=== PATIENT | female | born 1955 | race Caucasian/White ===

== ENCOUNTER 2017-02-08 20:40 | Emergency (ER) | payer OTHER ==
[2017-02-08] MEDS ORDERED: LIDOCAINE 1%/EPI 1:100,000 20 ML VIAL. IJ ONE (22:15)
[2017-02-08] MEDS ORDERED: LIDOCAINE 2%/EPI 1:100,000 20 ML VIAL. IJ ONE (22:45)
--- NOTE | 2017-02-08 23:16 | PHYS DOC ---
Past History Past Medical History: Depression, Hypothyroid Past Surgical History: Appendectomy, Tonsillectomy, Other Alcohol Use: None Drug Use: None Adult General Chief Complaint Chief Complaint: ANIMAL BITE HPI HPI Patient is a 61 year old female who presents with complaint of dog bite wounds to the forehead and scalp. Patient states that this took place immediately prior to arrival. Patient states that she recently moved in a new home. Patient states that her neighbor had a dog who came up to her while she was working on the other side of the fence and the dog snapped at her, biting her left scalp and forehead. Patient states she suffered lacerations as a result of this. Patient states that she had significant bleeding at the scene. Currently patient 's bleeding is controlled. Patient denies any other complaints. Patient states she is up-to-date on her tetanus immunization. The incident has been reported to [employer]. The patient was questioned by authorities while in the emergency department. The patient is here to have her lacerations evaluated and repaired. Review of Systems Review of Systems Constitutional: Denies fever or chills [] Eyes: Denies change in visual acuity, redness, or eye pain [] HENT: Denies nasal congestion or sore throat [] Musculoskeletal: Denies back pain or joint pain [] Integument: Facial and scalp lacerations [] Neurologic: Denies headache, focal weakness or sensory changes [] Current Medications Current Medications Current Medications Medications (Trade) Dose Ordered Sig/[facility] Start Time Stop Time Status Last Admin Dose Admin Lidocaine/ Epinephrine (Xylocaine 1%-Epi 1:100,000) 20 ml 1X ONCE 02/08/17 22:15 02/08/17 22:16 DC Lidocaine/ Epinephrine (Xylocaine 2%-Epi 1:100,000) 20 ml 1X ONCE 02/08/17 22:45 02/08/17 22:46 DC Allergies Allergies Allergies Coded Allergies Type Severity Reaction Last Updated Verified Iodinated Contrast- Oral and IV Dye Allergy Mild NAUSEA 02/08/17 Yes Physical Exam Physical Exam Constitutional: Alert, afebrile, no acute distress.. [] HENT: Normocephalic, 1.5 cm laceration along left forehead above hairline, 1.5 cm laceration to left parietal scalp bilateral external ears normal, oropharynx moist, no oral exudates, nose normal. [] Eyes: PERRLA, EOMI, conjunctiva normal, no discharge. [] Neck: Normal range of motion, no tenderness, supple, no stridor. [] Lungs & Thorax: Bilateral breath sounds clear to auscultation [] Skin: Warm, dry, no erythema, no rash. [] Extremities: No tenderness, no cyanosis, no clubbing, ROM intact, no edema. [] Neurologic: Alert and oriented X 3, normal motor function, normal sensory function, no focal deficits noted. [] Current Patient Data Vital Signs Vital Signs Date Time Temp Pulse Resp B/P (MAP) Pulse Ox O2 Delivery O2 Flow Rate FiO2 02/08/17 20:45 98.4 62 18 99 Room Air EKG EKG Not performed [] Radiology/Procedures Radiology/Procedures Not performed [] Course & Med Decision Making Course & Med Decision Making Pertinent Labs and Imaging studies reviewed. (See chart for details) The patient's lacerations were repaired as outlined in the procedure note. A full report to the authorities was completed while patient was in the emergency department. Advised patient follow-up in 5-7 days with primary doctor for removal of carlos eduardo. Advised return emergency department for any worsening symptoms. Patient was understanding and in agreement with treatment plan. Dragon Disclaimer Dragon Disclaimer This chart was dictated in whole or in part using Voice Recognition software in a busy, high-work load, and often noisy Emergency Department environment. It may contain unintended and wholly unrecognized errors or omissions. Laceration Repair Lac Repair Indication: Laceration to left forehead and left parietal scalp Procedure: The patient was placed in the appropriate position and anesthesia of both lacerations was achieved with injection of lidocaine 2% with epinephrine. The area was then cleansed with saline soaked gauze. The laceration to the left forehead was closed using 2 surgical carlos eduardo. The left parietal scalp laceration was also closed with 2 surgical carlos eduardo. Total repaired wound length: 3 cm. Other Items: Stable count: 4 The patient tolerated the procedure without difficulty. Complications: None. Departure Departure: Impression: Primary Impression: Dog bite of face Additional Impression: Scalp laceration Disposition: HOME, SELF-CARE Condition: IMPROVED Referrals: DENISHA CASTILLO (PCP) Patient Instructions: Animal Bite, Laceration Care, Adult, Staple Care and Removal Additional Instructions: Follow-up in 5-7 days with your primary doctor for removal of carlos eduardo. Return to the emergency department for any worsening symptoms. Problem Qualifiers Primary Impression: Dog bite of face Encounter type: initial encounter Qualified Codes: S01.85XA - Open bite of other part of head, initial encounter; W54.0XXA - Bitten by dog, initial encounter Additional Impression: Scalp laceration Encounter type: initial encounter Qualified Codes: S01.01XA - Laceration without foreign body of scalp, initial encounter CHANA CORDERO MD Feb 08, 2017 23:16
[2017-02-08 23:18] VITALS: BP 120/65
== END 2017-02-08 23:21 | disposition home or self-care (01) ==
LOC: ER 20:40
DX: S01.85XA Open bite of other part of head, initial encounter (principal); S01.01XA Laceration without foreign body of scalp, initial encounter; E03.9 Hypothyroidism, unspecified; W54.0XXA Bitten by dog, initial encounter; Y93.89 Activity, other specified; Y99.8 Other external cause status; Y92.89 Other specified places as the place of occurrence of the external cause
CPT/HCPCS: 12001; 12011; 99284-25

== ENCOUNTER 2017-02-18 18:21 | Emergency (ER) | payer OTHER ==
[~2017-02-18] VITALS: Ht 167.6 cm; Wt 79.4 kg
[2017-02-18 18:27] VITALS: BP 149/83
[2017-02-18] MEDS ORDERED: NAPR500T PO (18:33)
--- NOTE | 2017-02-18 18:33 | PHYS DOC ---
Past History Past Medical History: Depression, Hypothyroid Past Surgical History: Appendectomy, Tonsillectomy, Other Alcohol Use: None Drug Use: None Adult General Chief Complaint Chief Complaint: SUTURE/STAPLE REMOVAL HPI HPI Patient is a 61 year old female who presents with staple removal. She was seen here February 08 for dog bite to the scalp forehead area. Wounds were cleansed and repaired. She is here to have carlos eduardo removed. No drainage no redness no pain to the wounds. Review of Systems Review of Systems Constitutional: Denies fever or chills Integument: Denies rash or skin lesions. [place] intact. Allergies Allergies Allergies Coded Allergies Type Severity Reaction Last Updated Verified Iodinated Contrast- Oral and IV Dye Allergy Mild NAUSEA 02/08/17 Yes Physical Exam Physical Exam Constitutional: Well developed, well nourished, no acute distress, non-toxic appearance. HENT: Normocephalic, atraumatic, carlos eduardo noted to the left scalp margin in the left parietal scalp area incisions well-healed. No redness or drainage. Skin: Warm, dry, no erythema, no rash. Wound is well-healed Current Patient Data Vital Signs Reviewed EKG EKG [] Dragon Disclaimer Dragon Disclaimer This chart was dictated in whole or in part using Voice Recognition software in a busy, high-work load, and often noisy Emergency Department environment. It may contain unintended and wholly unrecognized errors or omissions. Departure Departure: Impression: Primary Impression: Removal of carlos eduardo Disposition: HOME, SELF-CARE Condition: GOOD Referrals: DENISHA CASTILLO (PCP) Patient Instructions: Wound Care, [id number] TODD DELGADO MD Feb 18, 2017 18:33
== END 2017-02-18 18:37 | disposition home or self-care (01) ==
LOC: ER 18:21
DX: S01.85XD Open bite of other part of head, subsequent encounter (principal); E03.9 Hypothyroidism, unspecified; Z91.041 Radiographic dye allergy status; W54.0XXD Bitten by dog, subsequent encounter
CPT/HCPCS: 99281

== ENCOUNTER → 2018-09-19 | Outpatient (CLI) | payer OTHER ==
[~2018-09-19] MED LIST: NAPR-683 PO
--- NOTE | 2018-09-28 15:14 | RAD ---
DATE: September 19, 2018 EXAM: MAMMO NABILA SCREENING BILATERAL HISTORY: Screening study. History of bilateral reduction mammoplasty. COMPARISON: None are available. This is a new baseline study. 2-D digital mammographic views of both breasts were performed in the CC and MLO projections. 3-D digital tomosynthesis images of both breasts were performed in the CC and MLO projections and reviewed on a computer workstation. This study was interpreted with the benefit of Computerized Aided Detection (CAD). FINDINGS: Breast Density: FATTY The breast parenchyma is primarily fatty replaced. Breast parenchyma level density A.. There are no dominant suspicious masses, suspicious microcalcifications or evidence of architectural distortion. Scarring is seen inferiorly in both breasts along with scattered fat necrosis calcifications which is a benign finding related to reduction mammoplasty. IMPRESSION: No mammographic indicators for malignancy. BI-RADS CATEGORY: 2 BENIGN FINDING RECOMMENDED FOLLOW-UP: 12M 12 MONTH FOLLOW-UP PQRS compliance statement: Patient information was entered into a reminder system with a target due date September 20, 2019 for the next mammogram. Mammography is a sensitive method for finding small breast cancers, but it does not detect them all and is not a substitute for careful clinical examination. A negative mammogram does not negate a clinically suspicious finding and should not result in delay in biopsying a clinically suspicious abnormality. "Our facility is accredited by the [employer] Mammography Program." The patient's breast density may affect the ability of mammography to detect breast cancer. There are 4 categories of breast density, A, B, C and D. Breast density A means that most of the breast tissue is replaced with adipose tissue and therefore is not dense. Breast density B means that the breast tissue is mildly dense and scattered. Breast density C means that the breast tissue is heterogeneously dense. Breast density D means that the breast tissue is very dense. Breast densities especially C and D may decrease the sensitivity of mammography to detect breast cancer. Therefore, the patient may benefit from 3-D breast mammography (3D breast tomography) as a part of their screening mammogram. Insurance may or may not pay for this additional imaging. The patient's breast density based on today's mammogram is category A.
== END | disposition home or self-care (01) ==
LOC: MAMMO 15:00
PROVIDERS: ATTEND Physician Assistant Medical
DX: Z12.31 Encounter for screening mammogram for malignant neoplasm of breast (principal)
CPT/HCPCS: 77063; 77067

== ENCOUNTER 2020-12-03 07:25 | Emergency (ER) | payer BC, OTHER ==
[~2020-12-03] VITALS: Ht 170.2 cm; Wt 88.0 kg
--- NOTE | 2020-12-03 08:12 | RAD ---
Multiple views of the right ribs as well as AP view of the chest were obtained. History: Reason: fall- right rib pain / Spl. Instructions: / History: Comparison: none No displaced fractures identified. There is an acute angulation of the seventh right lateral rib sugg esting nondisplaced fracture. No pneumothorax is seen. Impression: Possible nondisplaced angulated fracture of the right lateral seventh rib. Electronically signed by: Matt Alston MD (12/03/2020 8:09 AM) [id number]
--- NOTE | 2020-12-03 08:15 | PHYS DOC ---
Past History Past Medical History: Depression, Diabetes, GERD Past Surgical History: Appendectomy, Other Additional Past Surgical Histo: breast surgery, ovarian cysts Alcohol Use: Rarely Drug Use: None General Adult EDM: Chief Complaint: RIB PAIN HPI: HPI: 65-year-old female presents with right rib pain after falling onto the stairs. She was walking and the stairs were wet from the rain and she slipped and hit the right midportion of her ribs on one of the stairs. She also hit her right hip on a stair, but her hip is minimal pain. She is able to walk without difficulty. Her ribs hurt moderate to severe in level. It hurts worse with deep breathing. She is concerned about fracture. Review of Systems: Review of Systems: Constitutional: Denies fever or chills Eyes: Denies change in visual acuity HENT: Denies nasal congestion or sore throat Respiratory: Denies cough or shortness of breath Cardiovascular: Denies chest pain or edema GI: Denies abdominal pain, nausea, vomiting, bloody stools or diarrhea : Denies dysuria Musculoskeletal: Right rib pain Integument: Denies rash Neurologic: Denies headache, focal weakness or sensory changes Endocrine: Denies polyuria or polydipsia Lymphatic: Denies swollen glands Psychiatric: Denies depression or anxiety Allergies: Allergies: Allergies Coded Allergies Type Severity Reaction Last Updated Verified Iodinated Contrast Media Allergy Mild NAUSEA 02/08/17 Yes Physical Exam: PE: Constitutional: Well developed, well nourished, obese, mild acute distress, non- toxic appearance. [] HENT: Normocephalic, atraumatic, bilateral external ears normal, oropharynx [address], no oral exudates, nose normal. [] Eyes: PERRLA, EOMI, conjunctiva normal, no discharge. [] Neck: Normal range of motion, no tenderness, supple, no stridor. [] Cardiovascular:Heart rate regular rhythm, no murmur [] Lungs & Thorax: Bilateral breath sounds clear to auscultation. Abrasion over s eventh or eighth rib on the right. Tenderness in this area. [] Abdomen: Bowel sounds normal, soft, no tenderness, no masses, no pulsatile masses. [] Skin: Warm, dry, no erythema, no rash. [] Back: No tenderness, no CVA tenderness. [] Extremities: No tenderness, no cyanosis, no clubbing, ROM intact, no edema. [] Neurologic: Alert and oriented X 3, normal motor function, normal sensory function, no focal deficits noted. [] Psychologic: Affect normal, judgement normal, mood normal. [] Current Patient Data: Vital Signs: Vital Signs Date Time Temp Pulse Resp B/P (MAP) Pulse Ox O2 Delivery O2 Flow Rate FiO2 12/03/20 07:46 98.1 45 16 100/45 (63) 92 Room Air EKG: EKG: [] Radiology/Procedures: Radiology/Procedures: [] Impressions: Multiple views of the right ribs as well as AP view of the chest were obtained. History: Reason: fall- right rib pain / Spl. Instructions: / History: Comparison: none No displaced fractures identified. There is an acute angulation of the seventh right lateral rib suggesting nondisplaced fracture. No pneumothorax is seen. Impression: Possible nondisplaced angulated fracture of the right lateral seventh rib. Electronically signed by: Matt Shea MD (12/03/2020 8:09 AM) [id number] DICTATED AND SIGNED BY: MATT SHEA MD DATE: 12/03/20 0808 CC: KATIE BUSTILLO DO; DENISHA CASTILLO PA ~MTH0 0 Heart Score: C/O Chest Pain: No Risk Factors: Risk Factors: DM, Current or recent (<one month) smoker, HTN, HLP, family history of CAD, obesity. Risk Scores: Score 0 - 3: 2.5% MACE over next 6 weeks - Discharge Home Score 4 - 6: 20.3% MACE over next 6 weeks - Admit for Clinical Observation Score 7 - 10: 72.7% MACE over next 6 weeks - Early Invasive Strategies Course & Med Decision Making: Course & Med Decision Making Pertinent Labs and Imaging studies reviewed. (See chart for details) The patient's x-ray does show a nondisplaced seventh rib fracture. I have ordered her [place] 7.5 for pain control in the ER. I discussed with her rib fractures and the importance of taking deep breaths despite the pain. I will also give her [place] 5/325 prescription for home. Patient states verbal understanding. She is stable for discharge at this time. [] Vale Disclaimer: Vale Disclaimer: This electronic medical record was generated, in whole or in part, using a voice recognition dictation system. Departure Departure: Impression: Primary Impression: Fracture of seven ribs of right side Qualified Codes: S22.41XA - Multiple fractures of ribs, right side, initial encounter for closed fracture Disposition: HOME / SELF CARE / HOMELESS Condition: STABLE Referrals: DENISHA CASTILLO (PCP) Patient Instructions: Rib Fracture, [id number] Scripts Hydrocodone/Acetaminophen (Hydrocodone-Acetamin 5-325 mg) 1 Each Tablet 1-2 EACH PO Q6HRS PRN for PAIN, #20 TAB Prov: KATIE BUSTILLO DO 12/03/20 KATIE BUSTILLO DO December 03, 2020 08:14
[2020-12-03] MEDS ORDERED: HYDROcodone/APAP 7.5/325MG 1 TAB TABLET PO ONE (08:30)
[2020-12-03] MEDS ORDERED: HYDR-2759 PO (08:44)
[2020-12-03 08:52] VITALS: BP 100/58
== END 2020-12-03 09:00 | disposition home or self-care (01) ==
LOC: ER 07:25
DX: S22.41XA Multiple fractures of ribs, right side, initial encounter for closed fracture (principal); F32.9 Major depressive disorder, single episode, unspecified; E11.9 Type 2 diabetes mellitus without complications; K21.9 Gastro-esophageal reflux disease without esophagitis; Z91.041 Radiographic dye allergy status; W10.8XXA Fall (on) (from) other stairs and steps, initial encounter; Y93.01 Activity, walking, marching and hiking; Y92.89 Other specified places as the place of occurrence of the external cause; Y99.8 Other external cause status
CPT/HCPCS: 71101; 99283; 99284